=== PATIENT | male | born 2000 | race Caucasian/White ===

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

== ENCOUNTER 2019-03-04 17:41 | Emergency (ER) | payer OTHER ==
[~2019-03-04] VITALS: Ht 175.3 cm; Wt 64.0 kg
[2019-03-04 17:49] VITALS: Ht 175.3 cm; Wt 64.0 kg
[2019-03-04 20:52] VITALS: BP 134/81
== END 2019-03-04 19:00 | disposition home or self-care (01) ==
LOC: ED 17:41
DX: S80.862A Insect bite (nonvenomous), left lower leg, initial encounter (principal); S80.861A Insect bite (nonvenomous), right lower leg, initial encounter; J02.9 Acute pharyngitis, unspecified; W57.XXXA Bitten or stung by nonvenomous insect and other nonvenomous arthropods, initial encounter; Y93.89 Activity, other specified; Y92.89 Other specified places as the place of occurrence of the external cause; Y99.8 Other external cause status

== ENCOUNTER 2020-06-14 11:43 | Emergency (ER) | payer OTHER, SELFPAY ==
[~2020-06-14] VITALS: Ht 175.3 cm; Wt 77.1 kg
[2020-06-14 11:44] VITALS: Ht 175.3 cm; Wt 77.1 kg
== END 2020-06-14 12:22 | disposition home or self-care (01) ==
LOC: ED 11:43
DX: U07.1 COVID-19 (principal)
CPT/HCPCS: U0003